=== PATIENT | female | born 1995 | race Caucasian/White ===

== ENCOUNTER 2018-06-14 13:10 | Inpatient (IN) | payer MEDICAID, SELFPAY ==
[2018-06-14 11:43] LABS: Hematocrit 40.2 % (37-47); Hemoglobin 13.7 g/dl (12.0-15.0); Mean Corp Hgb Conc 34.1 g/gl (32-36); Mean Corpuscular Hgb 31.4 pg (27.0-32.0); Mean Platelet Vol. 11.7 fl (6.2-12.0); Platelet Count 264 K/mm3 (150-450); Red Blood Count 4.37 M/mm3 (4.2-5.4); Scan Indicated on CBC? Y/N NO; White Blood Count 12.6 K/mm3 (4.4-11.0)
[2018-06-14 11:46] VITALS: BMI 33.0
[2018-06-14 11:49] LABS: International Normalized Ratio 0.9; Prothrombin Time (Protime)PT. 12.1 SECONDS (11.7-14.9)
[2018-06-14 11:50] LABS: Partial Thromboplast Time 23.5 Seconds (24.1-36.2)
[2018-06-14 11:53] LABS: Protein, Urine (Random) 23.4 mg/dL (<11.9); Protein:Creat Ratio 197 mg/g CRE (0-200)
[2018-06-14 12:33] LABS: AST(SGOT) 25 U/L (15-37); Alanine Aminotransfer ALT/SGPT 27 U/L (13-56); Creatinine, Serum 0.72 mg/dL (0.55-1.02); EST Glomerular Filtration Rate 106 mL/min (>60); Est Glom Filt Rate - Afr Amer 128 mL/min (>60); Estimated Creatinine Clearance 104.94 ml/min; Uric Acid 5.1 mg/dL (2.6-6.0)
[2018-06-14] MEDS: 0.9% Normal Saline 100 ML IV.SOLN. INTRA-UTER (13:31)
--- NOTE | 2018-06-14 13:34 | PCM.HP.OB ---
- Problem List (1) Gestational hypertension Status: Acute (2) Tobacco use during Status: Acute (3) History of induced Status: Acute History Date of Admission: 06/14/18 Final DARYL: 06/19/18 Final DARYL Source: US <20 weeks Gestational age: 39 Weeks and 2 Days History of this : This is a 23 year-old, G [2], P [0010], at 39 weeks gestational age. Allergies No Known Allergies Allergy (Verified 03/08/15 18:02) Home Medications: Home Medications Vits [Prenatabs FA] 1 tablet PO DAILY 06/14/18 Smoking Status: Current every day smoker Alcohol: None Number of Fetus(es): 1 Heart Tracin, moderate variability, accels, no decels, Category 1 TOCO Analysis: Uterine irritability History Past Pregnancies: Past Pregnancies Delivery Date Name GA/Weeks Outcome Route Weight Infant Gender Labor Length Anesthesia Delivery Location Provider FOB Labs: GBS negative RPR negative Rubella Immune HBsAG negative HIV negative A positive GC/CT negative Expected Infant Delivery Method: Spontaneous Vaginal Review of Systems Constitutional: Denies: Chills, Fever, Weight Change HEENT: Denies: Head Aches, Sinus Congestion, Sinus Drainage Cardiovascular: Denies: Chest Pain, Palpitations Respiratory: Denies: Cough, Shortness of breath at rest, Sputum production Gastrointestinal: Denies: Abdominal Pain, Nausea, Vomiting Genitourinary: Denies: Dysuria Musculoskeletal: Denies: Joint Pain, Joint Tenderness Skin: Denies: Rash, Wounds Neurological: Denies: Numbness, Tingling, Focal weakness Psychiatric: Denies: Anxiety, Depression, Homicidal Ideations, Suicidal Ideations Hematologic/ Lymphatic: Denies: Easy Bruising, Easy Bleeding Physical Exam General: Alert, Oriented x3, No apparent distress HEENT: Atraumatic, Normocephalic. Negative for: Thyromegaly, Lymphadenopathy Cardiovascular: Regular rate, Regular Rhythm, No murmurs Lungs: Clear to auscultation, Normal air movement, No rhonchi, No wheeze Abdomen: Non Tender, Gravid Extremities:: No edema Neurological: - - +1/4 bilateral patelar reflexes. Negative for: Clonus [employer]: Normal external genitalia Estimated gestational size: Appropriate for gestational size Presentation: Cephalic Cervix Dilation (cm): 1 - vertex, IBOW Station: -2 Effacement (%): 50 - Seals bulb placed without difficulty. Patient tolerated well. Assessment/Plan All Active Problems Gestational hypertension (Acute) Tobacco use during (Acute) History of induced (Acute) This is a 23 year-old, G [2], P [0010], at weeks gestational age. A: Medically indicated induction of labor for Gestational Hypertension Category 1 FHT P: 1) Admit to L&D for IOL. Routine orders. 2) Admission labs 3) Seals catheter with PO cytotec for cervical ripening. Will start Pitocin after cervical ripening 4) Continuous monitoring 5) Planning epidural for pain management. 6) [facility] physician and notified of patient status.
[2018-06-14] MEDS: miSOPROStol 25 MCG TABLET PO (14:30)
[2018-06-14] MEDS: Nalbuphine 10 MG/ML Ampul IV ×2 (15:11→20:40)
[2018-06-14] MEDS: 0.9% Saline Lock 10 ML Syringe IV (15:11)
[2018-06-14] MEDS: Oxytocin 30 units/NS 500 ml 30 UNITS/500 ML IV.SOLN IV (18:50)
[2018-06-14] MEDS: Lactated Ringers 1,000 ML 50 ML IV ×2 (18:50→21:45)
[2018-06-14] MEDS: fentaNYL-bupivacaine (epidural) 100 ML BAG EPIDURAL (21:54)
[2018-06-15] MEDS: fentaNYL-bupivacaine (epidural) 100 ML BAG EPIDURAL (02:12)
[2018-06-15] MEDS: Lactated Ringers 1,000 ML 50 ML IV (02:13)
[2018-06-15] MEDS: Oxytocin 30 units/NS 500 ml 30 UNITS/500 ML IV.SOLN 334 UNITS IV (04:26)
--- NOTE | 2018-06-15 04:51 | PCM.OB.VAG ---
- Problem List (1) Gestational hypertension Status: Acute (2) Tobacco use during Status: Acute (3) History of induced Status: Acute (4) Vaginal delivery Status: Acute (5) Laceration of periurethral tissue with delivery Status: Acute Vaginal Delivery Maternal Presentation: Active Labor Amniotic Membrane Rupture Type: Spontaneous Amniotic Fluid Description: Clear Final DARYL Source: US <20 weeks Gestational age: 39w1d Date of Procedure: 06/15/18 Pre-Operative Diagnosis: Induction of labor Post-Operative Diagnosis: Surgery/ Procedure Performed: Spontaneous Vaginal Delivery Type of Anesthesia: Epidural Description of Procedure: Progressed to complete with urge to push. of viable male infant over intact perineum. 1st degree periurethral laceration. head delivered and body forthcoming with umbilical cord in hand. Placed on maternal abdomen skin to skin. Spontaneous cry, mouth and nares suctioned for secretions. APGARS 9,9 with weight pending. Pitocin started for active for active 3rd stage management. Placenta delivered with maternal effort, intact, 3 vessel cord. Perineum inspected and revealed periurethral laceration, repaired under epidural analgesia with 3.0 vicryl. Fundus firm, hemostasis achieved, 100ml EBL. Mom and baby stable. Family bonding well. Planning to bottle feed. notified of delivery. Presentation: Vertex Placental Delivery Description: Spontaneous Placenta Disposition: [facility] Cord Vessel Description: 3 Vessels Cord Entanglement: None Estimated Blood Loss: 100ml EBL A gender: Male (1 minute): 9 (5 minute): 9 Laceration: Periurethral Extnsion/lac Medications given after delivery: IV Pitocin
[2018-06-15] MEDS: Oxytocin 30 units/NS 500 ml 30 UNITS/500 ML IV.SOLN 167 UNITS IV (04:56)
[2018-06-15 09:30] VITALS: BP 144/86; PULSE 95; RESP 16; TEMP 37.2
[2018-06-15 14:00] VITALS: BP 141/78; PULSE 100
[2018-06-15 16:00] VITALS: BP 137/56; PULSE 101; RESP 16; TEMP 36.3
--- NOTE | 2018-06-15 17:49 | DCINST_ITS ---
Discharge Diet: No Restrictions Discharge Activity: Return to Normal Activity, May Drive, May Shower, May Take a Tub Bath May resume sexual activity in: 4-6 weeks Weight Bearing Status: Full weight bearing Call your doctor if your incision/area has: Continuous Slow Oozing, Sudden Increased Bleeding, Increased Pain/ Swelling, Increased Redness, Foul Smelling Discharge Call your doctor if you observe: Fever of 101 or Higher, Inability to urinate, Inability to have a bowel movement, Using more than one pad per hour, Shortness of breath, Chest pain, Increased palpitations (irregular heartbeat), Calf discomfort, Uncontrolled pain Additional Instructions: If you experience any of the following, contact your healthcare provider. * Bleeding that soaks a pad every hour for 2 hours * Fever 100.4 or higher * Unrelieved incision or abdominal pain * Swelling, redness, discharge or bleeding from your incision or episiotomy site * Your incision begins to separate * Problems urinating (including inability to urinate or burning while urinating). * Visual changes * Severe headache * Flu-like symptoms * Pain or redness in one of both of your breasts * Pain, warmth, tenderness or swelling in your legs, especially the calf area * Frequent nausea and vomiting * Symptoms of depression or anxiety If you experience any of the following, call 911 or go to the nearest Emergency Room. * Chest pain * Problems breathing * Seizure activity * Partial or complete paralysis of a body part, slurred speech, weakness or drooping of the face, or a sudden inability to walk or hold your balance Allergies/Adverse Reactions: Allergies No Known Allergies Allergy (Verified 03/08/15 18:02) Medications to take at Discharge Vits [Prenatabs FA ] 1 tablet PO DAILY 06/14/18 Ibuprofen [Motrin] 600 mg PO Q6H PRN PRN #30 tablet 06/15/18 The following prescriptions were given: Ibuprofen [Motrin] 600 mg PO Q6H PRN PRN #30 tablet PRN Reason: Mild Pain (-06/30) Please Follow Up With: Jennifer Turner CNM When: Call to make an appointment with your doctor in 5 days for a blood pressure check, 2 weeks and 6 weeks for visit. Please call the office to make these appointments. Primary Care Physician: Care Physician,No Primary [Primary Care Provider] - Test Results: Test results from this visit will be discussed in further detail at your follow- up appointment, if applicable.
[2018-06-15] MEDS: Ibuprofen 600 MG Tablet PO (19:19)
[2018-06-15 19:20] VITALS: BP 142/88; PULSE 96; RESP 18; TEMP 36.8
[2018-06-16 00:15] VITALS: BP 108/66; PULSE 84; RESP 18; TEMP 36.7
[2018-06-16 04:00] VITALS: BP 112/65; PULSE 83; RESP 18; TEMP 36.4; O2SAT 99
[2018-06-16 09:00] VITALS: BP 138/88; PULSE 89; RESP 16; TEMP 36.9; O2SAT 98
[2018-06-16] MEDS: Ibuprofen 600 MG Tablet PO ×2 (09:37→17:03)
--- NOTE | 2018-06-16 11:16 | PCM.PN.OB ---
Patient Problems: Active and Suspected Problems Gestational hypertension (Acute) Tobacco use during (Acute) History of induced (Acute) Vaginal delivery (Acute) Laceration of periurethral tissue with delivery (Acute) Subjective: Doing well per patient and nursing staff. Ambulating and taking PO without difficulty. Voiding and passing flatus. Denies headache, scotoma, chest pain, shortness of breath, leg pain, increased vaginal bleeding or pain. Bottle feeding. Planning on D/C tomorrow and will remain hotel status. Baby in special care nursery due to hypoglycemia. - Physical Exam General: Alert, Oriented x3, Cooperative HEENT: Atraumatic, Normocephalic Neck: Supple, Trachea Midline Lungs: Clear to auscultation, Normal air movement, No rhonchi, No wheeze Cardiovascular: Regular rate, Regular Rhythm, No murmurs Abdomen: Bowel Sounds Present, Soft, - - Fundus firm 3 below U Extremities: - - +1 edema non pitting. Sarah's negative. Neurological: Deep Tendon Reflexes 2+/4 and Symmetrical - Clonus negative Psych/Mental Status: Normal Affect, Appropriate Vital Signs Temp Pulse Resp BP Pulse Ox 98.5 F 89 16 138/88 H 98 06/16/18 09:00 06/16/18 09:00 06/16/18 09:00 06/16/18 09:00 06/16/18 09:00 Oxygen Delivery Method Room Air Weight: 192 lb 3.889 oz Body Mass Index (BMI) 33.0 Intake and Output for Last 24 Hours 06/14/18 06/15/18 06/16/18 23:59 23:59 23:59 Intake Total 3280 / 3280 Output Total 1900 / 1900 Balance 1380 / 1380 Medical Necessity - Tobacco Use Smoking Status: Heavy Smoker (>10/day) Assessment/Plan All Active Problems Gestational hypertension (Acute) Tobacco use during (Acute) History of induced (Acute) Vaginal delivery (Acute) Laceration of periurethral tissue with delivery (Acute) A: PPD #1 Gestational HTN P: 1) Routine care 2) BP stable 3) Planning D/C home tomorrow.
[2018-06-16 14:22] VITALS: BP 125/82; PULSE 97; RESP 18; TEMP 36.7; O2SAT 97
[2018-06-16 20:00] VITALS: BP 139/79; PULSE 90; RESP 16; TEMP 36.6
[2018-06-16] MEDS: Senna/Docusate Sodium 1 Tablet PO (21:02)
[2018-06-17 00:57] VITALS: BP 132/86; PULSE 80; RESP 18; TEMP 36.6; O2SAT 99
--- NOTE | 2018-06-17 08:31 | PN.OBGYN_ITS ---
Patient Problems: Active and Suspected Problems Gestational hypertension (Acute) Tobacco use during (Acute) History of induced (Acute) Vaginal delivery (Acute) Laceration of periurethral tissue with delivery (Acute) Subjective: pt seen in [facility]- pt reports is doing well. pt reports good pain control. lochia mild. bottle feeding. - Physical Exam General: Alert, Oriented x3 Neurological: Cranial nerves II-XII grossly intact Vital Signs Temp Pulse Resp BP Pulse Ox 97.8 F 80 18 132/86 H 99 06/17/18 00:57 06/17/18 00:57 06/17/18 00:57 06/17/18 00:57 06/17/18 00:57 Oxygen Delivery Method Room Air Weight: 87.2 kg Body Mass Index (BMI) 33.0 Intake and Output for Last 24 Hours 06/15/18 06/16/18 06/17/18 23:59 23:59 23:59 Intake Total 3280 / 3280 Output Total 1900 / 1900 Balance 1380 / 1380 Medical Necessity - Tobacco Use Smoking Status: Heavy Smoker (>10/day) Assessment/Plan All Active Problems Gestational hypertension (Acute) Tobacco use during (Acute) History of induced (Acute) Vaginal delivery (Acute) Laceration of periurethral tissue with delivery (Acute) PPD#2, doing well routine care dc to [facility]
[2018-06-17 09:00] VITALS: BP 130/87; PULSE 78; RESP 18; TEMP 37.2; O2SAT 97
[2018-06-17] MEDS: Ibuprofen 600 MG Tablet PO (09:10)
[2018-06-17 12:15] VITALS: BP 135/87; PULSE 106; RESP 18; TEMP 36.8; O2SAT 96
== END 2018-06-17 12:15 | disposition home or self-care (01) | DRG 560 ==
LOC: WPOUT 13:12 → WP 06-15 04:32
PROVIDERS: Admitting Provider Obstetrics & Gynecology; Referring Provider Obstetrics & Gynecology; Visit Provider Obstetrics & Gynecology
DX: O13.4 Gestational [pregnancy-induced] hypertension without significant proteinuria, complicating childbirth (principal); O71.82 Other specified trauma to perineum and vulva; O99.334 Smoking (tobacco) complicating childbirth; Z3A.39 39 weeks gestation of pregnancy; Z37.0 Single live birth
CPT/HCPCS: 59025; 59050; 82565; 82570; 84156; 84450; 84460; 84550; 85027; 85610; 85730; 86850; 86900; 99218; J7120; A4216; G0378

== ENCOUNTER 2021-08-08 06:56 | Inpatient (IN) | payer MEDICAID, SELFPAY ==
[2021-08-08] VITALS (89 sets, daily range): BP systolic 110–166; BP diastolic 58–98; PULSE 70–119; RESP 16; TEMP 36.4–37.4; O2SAT 84–100; BMI 34.4
[2021-08-08] MEDS: Lactated Ringers 1,000 ML 50 ML IV (07:25)
[2021-08-08] MEDS: Oxytocin 30 units/NS 500 ml 30 UNITS/500 ML IV.SOLN IV (07:59)
[2021-08-08 08:11] LABS: Absolute Lymphocyte Count 2.03 X10^3/uL (0.83-4.51); Basophil# 0.02 X10^3/uL; Basophil% 0.2 % (0-1); Hematocrit 33.3 % (37-47); Hemoglobin 11.5 g/dL (12.0-15.0); Lymphocyte # 2.03 X10^3/ul (0.83-4.51); Lymphocyte % 21.1 % (19-41); Mean Corp Hgb Conc 34.5 g/dL (32-36); Mean Corpuscular Hgb 32.1 pg (27.0-32.0); Mean Platelet Vol. 10.9 fl (6.2-12.0); Monocyte# 0.55 X10^3/uL; Monocyte% 5.7 % (0-10); NRBC Flagged by Analyzer 0 % (0-5); Neutrophil # 6.99 X10^3/uL (2.7-7.7); Neutrophil % 72.7 % (47-70); Platelet Count 259 K/mm3 (150-450); RBC Distribution Width CV 12.6 % (11.6-14.6); RBC Distribution Width SD 42.7 fl (35.1-43.9); Red Blood Count 3.58 M/mm3 (4.2-5.4); White Blood Count 9.6 K/mm3 (4.4-11.0)
[2021-08-08] MEDS: 0.9% Normal Saline Single 100 ML IV.SOLN. INTRA-UTER (08:33)
--- NOTE | 2021-08-08 08:38 | HP.PCM.OB_ITS ---
HPI - General General Date of Admission: 08/08/21 HPI Narrative DEJA LEE, is a 26 F at 39w0d for induction of labor. History of GHTN, tobacco use, and COVID 19 during second trimester of . HSV on prophylaxis. [facility] Medical History (Updated 08/08/21 @ 13:13 by Jennifer Turner CNM) Anxiety Gestational HTN depression Home Medications Prenatabs FA 1 tab PO DAILY 06/14/18 [History Last Taken 08/08/21 06:00 1 TAB] L. acidophilus-L. rhamnosus [Florajen Women] 1 cap PO DAILY 08/08/21 [History Last Taken 08/07/21] aspirin 81 mg PO DAILY 08/08/21 [History Last Taken 08/08/21 06:00] omeprazole 40 mg PO DAILY 08/08/21 [History Last Taken 08/08/21 05:00 40 mg] trazodone 50 mg DAILY 08/08/21 [History Last Taken 08/07/21 22:30 50 mg] valacyclovir 1 PO DAILY 08/08/21 [History Last Taken 08/08/21 05:00 1 gram] Allergy/AdvReac Type Severity Reaction Status Date / Time escitalopram [From Lexapro] AdvReac Nausea Verified 08/08/21 07:42 Family History (Updated 08/08/21 @ 08:21 by Karolyn Ly RN) Grandfather Colon cancer Surgical History (Updated 08/08/21 @ 08:20 by Karolyn Ly RN) H/O dilation and curettage Social History Smoking Status: Current every day smoker History Elective abortions Hx Para 1 Spontaneous abortions Hx # Term Pregnancies Ectopic pregnancies Hx # Pregnancies Multiple births # of living children NST FHR Rate Baby A Baseline: 140 Variability:: Moderate Accelerations:: 15 x 15 Decelerations:: None FHR Category:: Category I Uterine Activity:: None Vital Signs Vital Signs Vital Signs: 08/08/21 08:31 Pulse Rate 111 H Blood Pressure 127/81 H BP Systolic 127 BP Diastolic 81 Weight Weight: 201 lb Body Mass Index (BMI) 34.4 Physical Exam Const alert and oriented x3 General Appearance: cooperative Orientation / Consciousness: awake, oriented to person, oriented to place and oriented to time Exam Limitations: no limitations HEENT normocephalic Head and Scalp: normal to inspection, normocephalic and atraumatic Face and Sinus: normal facial exam Eyes General Eye: normal appearance of both eyes Neck full ROM Chest Chest: symmetrical chest wall rise Resp normal respiratory effort and normal air movement Auscultation: clear to auscultation bilaterally Cardio regular rate, regular rhythm, S1 normal heart sound, S2 normal heart sound, no murmurs, no rub, no gallops and no clicks GI normal to inspection, nondistended, normoactive bowel sounds and non-tender appearance of the vagina normal Narrative: latex free alcaraz placed through cervical os with 30 ml NS instilled, no complications and patient tolerated well. Bladder / Kidney Exam: no CVA tenderness Manual OB Exam: estimated gestational size appropriate, presentation cephalic, dilated 1, effaced 60 and station -2 Back/Spine normal ROM Extremity normal to inspection and full ROM Skin no rashes or lesions noted Neuro oriented x3, CN's II-XII intact bilaterally and moves all extremities Sensorium / Orientation: awake, alert and oriented to person Motor Exam: clonus absent Deep Tendon Reflexes: Rt Patellar (L4): 2+ and Lt Patellar (L4): 2+ Labs Labs Labs: Blood Type A POSITIVE Antibody Screen NEGATIVE Hct 33.3 % (37-47) L Hgb 11.5 g/dL (12.0-15.0) L Rhogam given: No HepC negative HIV negative HBsAG negative Rubella Immune HepC negative GBS negative A positive Assessment & Plan (1) Tobacco use during : (2) History of induced : (3) History of gestational hypertension: (4) COVID-19 affecting in second trimester: (5) Elective induction of labor planned: (6) History of depression: (7) History of drug abuse: (8) History of alcohol abuse: (9) HSV (herpes simplex virus) anogenital infection: PLAN: 1) Admit to labor and delivery 2) Routine labs 3) GBS negative 4) HSV, prophylaxis with valtrex 1gram PO once daily, no lesions or active outbreak 5) Continuos EFM 6) Alcaraz and pitocin per policy 7) Epidural for pain management 8) collaborative physician and notified of patient status
[2021-08-08] MEDS: Lactated Ringers 500 ML 999 ML IV (10:19)
[2021-08-08] MEDS: fentaNYL-bupivacaine (epidural) 100 ML BAG EPIDURAL ×2 (10:59→15:47)
[2021-08-08] MEDS: Lactated Ringers 1,000 ML 200 ML IV (15:26)
--- NOTE | 2021-08-08 16:18 | PCM.PN.OB ---
Subjective Subjective Lying on side in bed. Family at bedside. Objective Data Objective Data Vital Signs: Vital Signs Temp Pulse BP Pulse Ox 98.5 F 90 124/76 H 99 08/08/21 15:44 08/08/21 16:15 08/08/21 15:44 08/08/21 16:15 Weight: 201 lb Body Mass Index (BMI) 34.4 Intake & Output: Intake and Output for Last 24 Hours 08/06/21 08/07/21 08/08/21 23:59 23:59 23:59 Intake Total 1514.80 / 1514.80 Output Total 600 / 600 Balance 914.80 / 914.80 Lab / Micro Data Result Diagrams: 08/08/21 07:25 Labs: Laboratory Results - last 24 hr 08/08/21 07:25: WBC 9.6, RBC 3.58 L, Hgb 11.5 L, Hct 33.3 L, MCV 93.0, MCH 32.1 H, MCHC 34.5, RDW Std Deviation 42.7, RDW Coeff of Shyanne 12.6, Plt Count 259, MPV 10.9, Immature Gran % (Auto) 0.300, Neut % (Auto) 72.7 H, Lymph % (Auto) 21.1, [place] % (Auto) 5.7, Eos % (Auto) 0.0, Baso % (Auto) 0.2, Absolute Neuts (auto) 7.0, Absolute Lymphs (auto) 2.03, Nucleated RBC % 0 08/08/21 07:25: Blood Type A POSITIVE, Antibody Screen NEGATIVE Micro: Microbiology 08/08/21 07:25 Nasal Secretion SARS-CoV-2 Antigen (Rapid) - Final Physical Exam Narrative Coping well Manual OB Exam: dilated 6 cm, effaced 60%, station 0 and other AROM for large amount of clear fluid NST FHR Rate Baby A Baseline: 135 Variability:: Moderate Accelerations:: 15 x 15 Decelerations:: None FHR Category:: Category I Uterine Activity:: Every 2-3 minutes Assessment & Plan (1) HSV (herpes simplex virus) anogenital infection: (2) Elective induction of labor planned: (3) COVID-19 affecting in second trimester: (4) History of gestational hypertension: (5) Gestational hypertension: PLAN: 1) Active labor, progressing 2) AROM clear fluid 3) Continuous EFM 4) Epidural for pain management 5) notified of labor and status
[2021-08-08] MEDS: Oxytocin 30 units/NS 500 ml 30 UNITS/500 ML IV.SOLN 334 UNITS IV (19:01)
--- NOTE | 2021-08-08 19:18 | OP.PCM_ITS ---
Assessment & Plan (1) Vaginal delivery: (2) Shoulder dystocia during labor and delivery: Maternal Data Information DARYL Calculator Estimated Delivery Date Method Current WG Current Estimate 08/15/21 Manual 39w 0d Vaginal Delivery Maternal Presentation Maternal Presentation: Elective Induction Type of Induction: Pitocin and Seals Bulb Operative Information Date of Procedure: 08/08/21 Pre-Operative Diagnosis: Induction of labor Post-Operative Diagnosis: Vaginal delivery with shoulder dystocia Surgery / Procedure Performed: Spontaneous Vaginal Delivery Type of Anesthesia: Epidural Estimated Blood Loss: 400 ml Time of Delivery: 18:58 Findings Description of Procedure: Progressed to complete with strong urge to push. of viable female over intact perineum, APGARS 7, 9. Infant head delivered AMY, shoulders not forthcoming with maternal pushing effort. Paul and suprapubic pressure applied, attempted posterior arm removal and unsuccessful. Mittal Maneuver and anterior arm forthcoming and infant delivered, shoulder dystocia lasted approximately 1 minute and 18 seconds respectively. placed on maternal abdomen, attempted cry. Mouth and nares suctioned and stimulation. Cord clamped and cut for evaluation by nursing staff at warmer, strong cry with transfer. Pitocin started for active 3rd stage management. Placenta delivered via ledezma intact, 3 vessel cord. Perineum inspected and revealed intact, no repair needed. Vaginal sweep completed, sponge and instru ment count correct by me. Planning to bottle feed. Mom and baby stable, family bonding well. collaborative physician and notified of patient status. Presentation: AMY Amniotic Membrane Rupture Type: Artificial Amniotic Fluid Description: Clear Placental Delivery Description: Spontaneous Placenta Disposition: [facility] Cord Vessel Description: 3 Vessels Cord Entanglement: None Infant A Gender: Female (1 minute): 7 (5 minute): 9 Delayed Cord Clamping: No Post Vaginal Delivery Medications Given After Delivery: IV Pitocin Episiotomy Description: None Laceration: None Complication Complications: None
[2021-08-08] MEDS: Ibuprofen 600 MG Tablet PO (20:04)
[2021-08-08] MEDS: Acetaminophen 500 MG Tablet 1000 MG PO (20:52)
[2021-08-09] VITALS (9 sets, daily range): BP systolic 118–133; BP diastolic 65–81; PULSE 69–101; RESP 16; TEMP 36.4–36.9; O2SAT 98–100
[2021-08-09] MEDS: Ibuprofen 600 MG Tablet PO (02:28)
[2021-08-09 06:38] LABS: Hemoglobin 10.9 g/dL (12.0-15.0); Mean Corp Hgb Conc 35.2 g/dL (32-36); Mean Corpuscular Hgb 32.6 pg (27.0-32.0); Mean Corpuscular Volume 92.8 fL (81-99); Mean Platelet Vol. 10.8 fl (6.2-12.0); Platelet Count 236 K/mm3 (150-450); RBC Distribution Width CV 12.7 % (11.6-14.6); RBC Distribution Width SD 42.9 fl (35.1-43.9); Red Blood Count 3.34 M/mm3 (4.2-5.4); White Blood Count 13.8 K/mm3 (4.4-11.0)
--- NOTE | 2021-08-09 08:35 | PN.OBGYN_ITS ---
Subjective Subjective Patient seen at bedside. Sleeping sound. Ambulating and voiding without difficulty. Denies any pain. Bottle feeding. Desires discharge home later today after 24 hours. Objective Data Objective Data Vital Signs: Vital Signs Temp Pulse Resp BP Pulse Ox 97.6 F L 69 16 125/73 H 100 08/09/21 06:00 08/09/21 06:00 08/09/21 06:00 08/09/21 06:00 08/09/21 06:00 Oxygen Delivery Method Room Air Weight: 201 lb Body Mass Index (BMI) 34.4 Intake & Output: Intake and Output for Last 24 Hours 08/07/21 08/08/21 08/09/21 23:59 23:59 23:59 Intake Total 2766.03 / 2766.03 Output Total 850 / 850 250 / 250 Balance 1916.03 / 1916.03 -250 / -250 Lab / Micro Data Result Diagrams: 08/09/21 06:30 Labs: Laboratory Results - last 24 hr 08/08/21 07:25: Blood Type A POSITIVE, Antibody Screen NEGATIVE 08/09/21 06:10: WBC Cancelled, Corrected WBC Cancelled, RBC Cancelled, Hgb Cancelled, Hct Cancelled, MCV Cancelled, MCH Cancelled, MCHC Cancelled, RDW Std Deviation Cancelled, RDW Coeff of Shyanne Cancelled, Plt Count Cancelled, MPV Cance lled, Diff Path Review Cancelled 08/09/21 06:30: WBC 13.8 H, RBC 3.34 L, Hgb 10.9 L, Hct 31.0 L, MCV 92.8, MCH 32.6 H, MCHC 35.2, RDW Std Deviation 42.9, RDW Coeff of Shyanne 12.7, Plt Count 236, MPV 10.8 Micro: Microbiology 08/08/21 07:25 Nasal Secretion SARS-CoV-2 Antigen (Rapid) - Final ROS Eyes Eyes: Denies blurry vision, change in vision or spots in vision ENT HEENT: Denies dizziness or headache(s) Cardiovascular Cardiovascular: Denies abdominal pain, chest pain or dyspnea Respiratory/Chest Respiratory/Chest: Denies cough, dyspnea, shortness of breath at rest or shortness of breath with exertion Gastrointestinal Gastrointestinal: Denies abdominal pain, diarrhea or vomiting Genitourinary Genitourinary: Denies change in urinary stream, difficulty urinating or dysuria Musculoskeletal Musculoskeletal: Reports none Integumentary Integumentary: Denies rash Neurologic Neurologic: Denies dizziness, headache(s), memory loss or weakness Physical Exam Const alert and no apparent distress General Appearance: cooperative and comfortable Exam Limitations: no limitations HEENT normocephalic Eyes General Eye: normal appearance of both eyes Neck full ROM General: normal visual inspection Chest Chest: symmetrical chest wall rise Resp normal respiratory effort and normal air movement Effort and Inspection: symmetric chest movement Auscultation: clear to auscultation bilaterally Cardio regular rate and regular rhythm GI normal to inspection, nondistended, normoactive bowel sounds Back/Spine normal ROM Extremity full ROM and no calf tenderness General Extremity: normal exam except as noted Skin no rashes or lesions noted Neuro CN's II-XII intact bilaterally Psych mental status grossly normal Assessment & Plan (1) Shoulder dystocia during labor and delivery: (2) Vaginal delivery: (3) History of alcohol abuse: (4) History of drug abuse: (5) History of depression: (6) History of gestational hypertension: PLAN: PPD 1 with shoulder dystocia Pain control Bottle feeding Continue ambulation Anticipate discharge home later today after 24 hours
[2021-08-09] MEDS: Acetaminophen 500 MG Tablet 1000 MG PO ×2 (09:11→16:01)
[2021-08-09] MEDS: Prenatal Vits Tablet 1 TABLET PO (11:08)
== END 2021-08-09 21:10 | disposition home or self-care (01) | DRG 560 ==
PROVIDERS: Admitting Provider Advanced Practice Midwife; PCP Nurse Practitioner Family; Visit Provider Advanced Practice Midwife
DX: O13.2 Gestational [pregnancy-induced] hypertension without significant proteinuria, second trimester (principal); Z37.0 Single live birth; O98.52 Other viral diseases complicating childbirth; B00.9 Herpesviral infection, unspecified; F17.200 Nicotine dependence, unspecified, uncomplicated; O66.0 Obstructed labor due to shoulder dystocia; Z86.16 Personal history of COVID-19; Z3A.39 39 weeks gestation of pregnancy; O99.334 Smoking (tobacco) complicating childbirth; Z86.59 Personal history of other mental and behavioral disorders
CPT/HCPCS: 59025; 59050; 85025; 85027; 86850; 86900; 86901; 87426; 99218; 99406; J7120; G0378; J3490

== ENCOUNTER 2021-08-25 11:51 | Day surgery (SDC) | payer MEDICAID, SELFPAY ==
--- NOTE | 2021-08-22 16:03 | HP.PCM_ITS ---
History and Physical Date of Admission: 08/25/21 HPI: The patient is a 26 year old female presenting for pre-operative visit. She is scheduled for laparoscpic bilateral salpingectomy, for sterilziation on 08/25/21. Procedure discussed along with risks, benefits and complications. Other alternatives discussed for management. Consent form signed? Yes. ? ? PAST MEDICAL HISTORY PAST MEDICAL HISTORY Diagnosis Date ? Acid reflux ? ? Anxiety state ? ? anxiety/depression ? Herpes simplex virus (HSV) infection ? ? History of depression 01/06/2021 ? 01/06/2021t has a history of anxiety/depression diagnosed as a teenager. She is currently taking BuSpar and trazodone. She states that the trazodone is for her insomnia. Medication as prescribed by Parvin Campos at [facility]. She just started seeing a counselor for depression in [place] at [facility]. Patient thinks that she did have depression but never ? History of herpes genitalis 01/06/2021 ? 02/08/21- HSV IgM positive and HSV IgG2 positive. Denies any current outbreak. Taking Valtrex 1gm PO daily for prophylaxis. Mireya Fried APRN.CRISTY 1Pt has a history of genital herpes. Discussed with pt. importance of reporting any outbreaks during should they occur.TKRN ? Insomnia ? ? Mental disorder ? ? depression ? ? ? PAST SURGICAL HISTORY PAST SURGICAL HISTORY Procedure Laterality Date ? INDUCED - EVACUATION ? CURRENT MEDICATIONS Current Outpatient Medications Medication Sig Dispense Refill ? valACYclovir (VALTREX) 1 gram Take 1 tablet by mouth once daily. 30 tablet 11 ? lidocaine (LMX 4) 4 % cream Apply to affected area as needed. 30 g 1 ? omeprazole (PRILOSEC) 40 mg capsule Take 40 mg by mouth once daily. ? ? ? traZODone (DESYREL) 50 mg tablet ? No current facility-administered medications for this visit. ? ? ALLERGIES: Lexapro [Escitalopram] ? PERSONAL HISTORY: SOCIAL HISTORY Social History ? Tobacco Use ? Smoking status: Former Smoker ? ? Packs/day: 1.00 ? ? Years: 8.00 ? ? Pack years: 8.00 ? ? Types: Cigarettes ? ? Quit date: 01/05/2021 ? ? Years since quittin.6 ? Smokeless tobacco: Never Used Vaping Use ? Vaping Use: current everyday user ? Substances: Nicotine Substance Use Topics ? Alcohol use: Not Currently ? Drug use: Not Currently ? ? Types: Cocaine ? FAMILY HISTORY: FAMILY HISTORY FAMILY HISTORY Problem Relation Age of Onset ? No Known Problems Mother ? ? No Known Problems Father ? ? No Known Problems Sister ? ? No Known Problems Maternal Grandmother ? ? Cancer Maternal Grandfather ? ? Diabetes Paternal Grandmother ? ? Heart Paternal Grandfather ? ? No Known Problems Son ? ? ? REVIEW OF SYMPTOMS: GENERAL: denies fevers or chills ENDOCRINOLOGY: has not been on steroids Cardiology : denies palpitations or chest pain Respiratory: denies SOB or cough Hematology: denies history of prolonged bleeding or easy bruising or VTE Allergy: Denies history of personal or family history of allergy to anesthesia ? PHYSICAL EXAMINATION: ? VITALS: Blood pressure 112/72, pulse 70, resp. rate 14, height 5' 3 (1.6 m), weight 172 lb 9.6 oz (78.3 kg), last menstrual period 11/08/2020, not currently . ? GENERAL: The patient is well nourished, well hydrated in no acute distress. , The patient is oriented to time, place, and person. NECK: Supple. No lynphadenopathy, normal thyroid, no thyromegaly. LUNGS: Clear to auscultation bilaterally. no wheezes, rhonchi or rales HEART: Regular rate and rhythm, Normal heart sounds and No murmurs or gallops ? IMPRESSION: sterilization request ? PLAN: The risks/benefits/alternatives and personal involved for the planned laparoscopic bilateral salpingectomy were reviewed with the patient. Her questions were answered to her satisfaction and she desires to proceed. Consent was signed. I reviewed with her postop instructions and expectations. ? ? I have reviewed and updated past medical and surgical history, medications and allergies Assessment & Plan Assessment/Plan (1) Request for sterilization:
[2021-08-25] VITALS (7 sets, daily range): BP systolic 113–124; BP diastolic 63–87; PULSE 55–86; RESP 16–18; TEMP 36.4–37.4; O2SAT 97–100; BMI 29.1
--- NOTE | 2021-08-25 | FALS_PTH ---
PATIENT: DEJA LEE LOC: [facility] U#:[id number] AGE/SX: 26/F ROOM: RE08/25/[address]: Dr. Ara Boogie MD : [id number] BED: DIS: 08/25/2021 SPEC #: [id number] RECD: 08/26/21 10:50 STATUS: TIA DUGAN #: [id number] JASBIR: 08/25/21 00:[address]: Ara Boogie DEPT: SURGICAL PATHOLOGY RECD BY: Seth Burns ENTERED: 08/26/21 10:51 SP TYPE: FALL TUBES OTHR DR: Parvin Campos NP-C Tissues: Fallopian tube Procedures: Surgery Specimen Level II HEADER OPERATION: Laparoscopic salpingectomy PRE-OP DIAGNOSIS: Sterilization TISSUE SUBMITTED: Bilateral fallopian tubes MICROSCOPIC DIAGNOSIS Bilateral fallopian tubes, bilateral salpingectomy: Bilateral fallopian tubes, no pathologic diagnosis. SJ:bubba 08/29/2021 MICROSCOPIC DESCRIPTION Slides are reviewed. GROSS DESCRIPTION Received in fixative is one container labeled with the patient's name and designated bilateral fallopian tubes. The specimen consists of two fallopian tubes with an average length of 8.5 cm and has an average diameter of 0.7 cm. Both fallopian tubes have normal fimbriated ends. No mass lesions are identified. [employer] sections are submitted in two cassettes with each cassette containing one fallopian tube. / AM:bubba 08/26/2021 TC:4 CPT: 42128 x2
[2021-08-25 12:37] LABS: Internal QC Validated? YES +Cl - CLEAR BKGD; Pregnancy, Urine Negative Negative
[2021-08-25] MEDS: Lactated Ringers 1,000 ML 70 ML IV (12:59)
[2021-08-25 13:00] LABS: Hemoglobin 14.3 g/dL (12.0-15.0); Mean Corpuscular Hgb 31.5 pg (27.0-32.0); Mean Corpuscular Volume 92.5 fL (81-99); Mean Platelet Vol. 9.8 fl (6.2-12.0); Platelet Count 394 K/mm3 (150-450); RBC Distribution Width CV 11.6 % (11.6-14.6); RBC Distribution Width SD 39.5 fl (35.1-43.9); Red Blood Count 4.54 M/mm3 (4.2-5.4); White Blood Count 6.8 K/mm3 (4.4-11.0)
[2021-08-25] MEDS: Celecoxib 200 MG Capsule 400 MG PO (13:00)
[2021-08-25] MEDS: Acetaminophen 500 MG Tablet 1000 MG PO (13:00)
--- NOTE | 2021-08-25 13:32 | DCINST_ITS ---
Discharge Instructions Diet Discharge Diet: No restrictions Activity May resume sexual activity in: 1 week Dressing / Incision Call your doctor if your incision/area has: Sudden Increased Bleeding and Foul Smelling Discharge Call your doctor if you observe: Fever of 101 or Higher Cleanse incision/area with: Soap & Water (Your incisions have skin glue and it can get wet. Leave on until it falls off) Follow Up Care Please Follow Up With: Ara Boogie MD When: In my office or virtual visit in 1-2 weeks or as needed Test Results: Test results from this visit will be discussed in further detail at your follow-up appointment, if applicable. Discharge Plan Admission Primary Reason for Your Visit: tubal sterilization Attending Provider: Ara Boogie Primary Care Provider: Parvin Campos NP Discharge Orders/Prescriptions Prescriptions: New ibuprofen [ibuprofen] 600 MG tablet 600 mg PO Q6H PRN (Reason: Pain) 10 Days Qty: 30 RF: 1 Continued valacyclovir 1 gram tablet 1 mg PO DAILY RF: 0 omeprazole 40 mg capsule,delayed release(DR/EC) 40 mg PO DAILY RF: 0 trazodone 50 mg QHS RF: 0 Referrals / Follow Up: Parvin Campos NP, [employer]ISTANT [employer]CIAL ACC[employer]ANT-C [Primary Care Provider] - Disposition Disposition (needs filled in before D/C Order can be placed): Home, Self Care
--- NOTE | 2021-08-25 14:11 | PCM.OPRPT ---
Report of Operation Date of Procedure: 08/25/21 Pre-Operative Diagnosis: Sterilization request Post-Operative Diagnosis: same Surgery/Procedure Performed:: Laparoscopic bilateral salpingectomy Description of Surgical Findings:: Normal uterus tubes and ovaries, normal cervix. Surgeon: Ara Boogie paradichlorobenzene machine operator: Rolly Type of Anesthesia: General Anesthesiologist: Bienvenido Lucero Special Medications: none Specimen's removed: bilateral fallopian tubes Drains: none Estimated Blood Loss (mL): 5 Fluids Replaced: 1000 Description of Procedure: The patient was taken to the operating room where she was prepped and draped in the dorsolithotomy position. A weighted speculum was placed in the vagina and the anterior lip of the cervix was grasped with a tenaculum. The Phuong uterine manipulator was placed and the remainder of the instruments were removed from the vagina. Attention was turned to the abdomen. All port sites were infiltrated with 0.5% Marcaine before skin incisions were made. A 5 mm [intraumbilical] incision was made. The anterior abdominal wall was tented up with 2 towel clamps while a 5 mm blade less trocar and sleeve were [directly inserted]. Intraperitoneal placement was confirmed with the laparoscope. The pneumoperitoneum was created and the underlying abdominal contents were intact. The patient was placed in Trendelenburg. Right and left lower quadrant ports were placed under direct visualization lateral to the inferior epigastric vessels. The bowel was swept away and the above findings were noted. The LigaSure device was used to clamp seal and transect the antimesenteric portions of the right tube to the cornual insertion of the uterus. The tube was amputated from the uterus and the pedicles were all confirmed to be hemostatic. The same procedure was performed on the contralateral side. The specimens were brought out through a 5 mm port. The pedicles were again examined and found to be hemostatic. The lateral ports were removed under direct visualization and no active bleeding was noted. The pneumoperitoneum was released. The skin incisions were closed with Monocryl suture in a subcuticular fashion and skin glue. The vaginal instruments were removed and the vaginal sweep was completed by me. The procedure was performed by me with assistance. All sponge and needle counts were correct and the patient was taken to the recovery room in stable condition. Grafts/Implants Used: none Procedure Start Time: 13:47 Procedure Stop Time: 14:13 Complications none Admit VTE Documentation VTE Present on Admission: No VTE Mechan Device Prophylaxis: SCD's VTE Pharm Prophylaxis ordered?: No Reason prophylaxis not ordered:: Procedure Not Indicated
[2021-08-25] MEDS: oxyCODONE 5 MG Tablet PO (15:51)
== END 2021-08-25 16:24 | disposition home or self-care (01) ==
PROVIDERS: PCP Nurse Practitioner Family; Referring Provider Obstetrics & Gynecology; Visit Provider Obstetrics & Gynecology
PROC: (CPT 58661; principal; 2021-08-25 13:20)
DX: Z30.2 Encounter for sterilization (principal); G47.00 Insomnia, unspecified; Z87.891 Personal history of nicotine dependence; F41.1 Generalized anxiety disorder; K21.9 Gastro-esophageal reflux disease without esophagitis
CPT/HCPCS: 58661; 00840; 81025; 85027; 87426; 88302; J7120; C1760; J2405